=== PATIENT | female | born 1990 | race African-American/Black ===

== ENCOUNTER 2016-07-30 08:55 | Inpatient (IN) | payer OTHER ==
[~2016-07-30 08:55] MED LIST: CITRIC ACID/SODIUM CITRATE 30 ML UNIT-DOSE CUP PO ONE; ELECTROLYTE-148 SOLN 1,000 ML IV ONE
[2016-07-30] MEDS ORDERED: ELECTROLYTE-148 SOLN 1,000 ML IV SCH ×2 (09:00→09:55)
[2016-07-30 09:58] LABS: BASOPHIL 0.6 % (0-2.0); EOSINOPHIL 1.2 % (0-4.5); MCHC 33.5 g/dl (32.0-36.0); MEAN CELL VOLUME 92.3 fl (80-96); MEAN PLT VOLUME 8.3 fl (7.5-11.1); NEUTROPHILS 71.6 % (42.8-82.8); PLATELET COUNT 185 K/MM3 (134-434); WHITE BLOOD COUNT 7.3 K/mm3 (4.0-10.0)
[2016-07-30 10:07] VITALS: BMI 40.3
[2016-07-30 10:23] LABS: CALCIUM 8.2 mg/dL (8.5-10.1); COCKROFT - GAULT 281.877; CREATININE 0.5 mg/dL (0.55-1.02)
[2016-07-30 10:26] LABS: INR 0.92 (0.82-1.09); PROTHROMBIN TIME (PATIENT) 10.1 SEC (9.98-11.88)
[2016-07-30 10:29] LABS: ACTIVATED PTT 27.3 SECONDS (26.9-34.4)
[2016-07-30] MEDS ORDERED: ELECTROLYTE-148 SOLN 500 ML IV ONE (11:04)
--- NOTE | 2016-07-30 11:16 | HP ---
Past Medical History - Primary Care Physician PCP:: Zora Dong - Admission Chief Complaint: 26 yrs , previous c/section, 41 weeks gestation, not in labor, requests for repeat c/section History of Present Illness: pnc at 2, [facility] .Late registrant at 33 weeks . wt gain 55lbs work up : AB Neg , Rhogam taken on 06/26/16 . Hbsag neg, Rpr nr, Quantiferon neg, Hiv neg, Rubella immune , Quantiferon neg, Gbs neg . 07/27/16 sono SLIUP , 40.5 weeks, bpp8/8, REBEKA 13.1, EFW 8'5" , NST cat-1 pt was awaiting for labor onset, she does not want to wait any longer . History Source: Patient, Medical Record - Past Medical History ALL TERRAIN VEHICLE TECHNICIAN: No: Seizure Cardiovascular: No: HTN, Murmur Pulmonary: No: Asthma Gastrointestinal: Yes: Constipation Renal/: No: UTI ...: 4 ...Para: 3 (2 07/04/15 7'7" . 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 in [facility]) ...: 0 ...Spon : 0 ...Induced : 0 ...Multiple Gestation: 0 ...LMP: 08/23/15 (mistaken dates ) ...EDC by Sono: 07/23/16 (41 weeks ) Heme/Onc: Yes: Anemia (pt non compliant in taking meds) Infectious Disease: No: AIDS, HIV, STD's, Tuberculosis Psych: No: Addictions, Anxiety, Bipolar, Depression Endocrine: No: Diabetes Mellitus, Hyperthyroidism, Hypothyroidism - Past Surgical History Past Surgical History: Yes: Hx Myomectomy: No Hx Transabdominal Cerclage: No - Smoking History Smoking history: Never smoked Have you smoked in the past 12 months: No - Alcohol/Substance Use Hx Alcohol Use: No History of Substance Use: reports: None - Social History History of Recent Travel: No Home Medications - Allergies Allergies/Adverse Reactions: Allergies Allergy/AdvReac Type Severity Reaction Status Date / Time No Known Allergies Allergy Verified 07/30/16 09:27 - Home Medications Home Medications: Ambulatory Orders Pnv95/Ferrous Fumarate/FA [ Vitamin Tablet] 1 each PO DAILY 07/28/16 Physical Exam - Maternity Vital Signs: Vital Signs Temperature 97.8 F 07/30/16 09:30 Pulse Rate 88 07/30/16 09:30 Respiratory Rate 18 07/30/16 09:30 Blood Pressure 111/65 07/30/16 09:30 O2 Sat by Pulse Oximetry (%) Selected Entries 07/30/16 09:30 Weight 235 lb Constitutional: Yes: Well Nourished, No Distress, Obese Eyes: Yes: WNL HENT: Yes: WNL, Normocephalic Neck: Yes: WNL Cardiovascular: Yes: WNL, Regular Rate and Rhythm Lungs: Clear to auscultation Breast(s): Yes: WNL (Large pendulous breast) - Abdominal Exam/OB Fundal Height: 40 Number of Fetuses: Single Presentation: Vertex Contractions: No Monitor Mode: External Heart Rate (range): 130 Heart Rate Location: Midline Category: I Accelerations: Uniform Decelerations: None - Vaginal Exam/OB Vaginal Bleediing: No Speculum Exam: No Dilatation (cm): close Effacement (%): unefface Amniotic Membrane Status: Intact Presentation: Vertex/Position Station: -3 - Physical Exam Musculoskeletal: Yes: WNL Extremities: Yes: WNL. No: Calf Tenderness Edema: Yes Edema: LLE: 1+, RLE: 1+ Integumentary: Yes: Incision (previous pfannensteil scar) Deep Tendon Reflex Grade: Normal +2 ...Motor Strength: WNL Psychiatric: Yes: WNL, Alert, Oriented - Labs Lab Results: CBC, BMP 07/30/16 09:40 07/30/16 09:40 Hemorrhage Risk Assessment - Risk Factors Medium Risk Factors: Yes: Obesity (BMI >40), Hematocrit < 30% & other Risk Score: 2 Risk Level: High Risk Problem List - Problems (1) with 41 completed weeks gestation Code(s): Z3A.41 - 41 WEEKS GESTATION OF (2) Previous section complicating Code(s): O34.219 - MATERNAL CARE FOR UNSP TYPE SCAR FROM PREVIOUS DEL (3) Anemia Code(s): D64.9 - ANEMIA, UNSPECIFIED Qualifiers: Anemia type: iron deficiency Iron deficiency anemia type: inadequate dietary iron intake Qualified Code(s): D50.8 - Other iron deficiency anemias (4) Obesities, morbid Code(s): E66.01 - MORBID (SEVERE) OBESITY DUE TO EXCESS CALORIES Assessment/Plan 26 yrs , 41 weeks gestation, previous c/section, not in labor, gbs neg, obesity, anemia requests for repeat c/se
[2016-07-30] MEDS ORDERED: ONDANSETRON 4 MG/2 ML VIAL IVPB PRN (11:23)
[2016-07-30] MEDS ORDERED: morphine SULFATE/Preservative Free 0.5 MG/ML (1cc Syringe) EP ONE (11:23)
[2016-07-30] MEDS ORDERED: IBUPROFEN 800 MG/8 ML IJ IVPB PRN (11:24)
[2016-07-30] MEDS ORDERED: SENNOSIDES/DOCUSATE COMBO (SENNA PLUS) TABLET (UD) PO PRN (13:17)
[2016-07-30] MEDS ORDERED: METHYLERGONOVINE MALEATE 0.2 MG/1 ML AMP IM PRN (13:17)
[2016-07-30] MEDS ORDERED: D5W-LR W/ 20 UNITS OXYTOCIN 1,000 ML IV SCH (13:30)
--- NOTE | 2016-07-30 13:30 | OP ---
Operative Note - Note: Operative Date: 07/30/16 Pre-Operative Diagnosis: 41 weeks, previous c/s ,requests repeat c/s , obesity, anemia Operation: Repeat LFTC/section, Lysis of adhesions Findings: baby boy at 12.08 pm, , 9/9, wt 8'7", LOT position both tubes & ovaries normal adhesions between uteus Right lateral abdominal wall 2 cm thick band clamped cut , stump sutured omental adhesions at abdominal wall at superior edge of the incision Surgeon: Zora Dong Assembler Production Line: Kamran Chun Anesthesiologist/PUBLIC RELATIONS REPRESENTATIVE: Ricco Harrison Anesthesia: Spinal Specimens Removed: placenta. cord blood Estimated Blood Loss (mls): 600 Drains, Volume Out (mls): 300 (glenroy color ) Fluid Volume Replaced (mls): 1,200 (iv Ancef 2 gm prior to incision given ) Operative Report Dictated: Yes
--- NOTE | 2016-07-30 13:39 | PN ---
Delivery - Delivery Section: Repeat, Low Flap Transverse (Lysis of adhesions) Type of Anesthesia: Spinal EBL (cc): 600 (oakes out put 300 ml glenroy color ) Delivery, Single - Stages of Labor Date of Delivery: 07/30/16 Time of Delivery: 12: Date Placenta Delivered: 07/30/16 Time Placenta Delivered: : Placenta: Yes: Manual Removal, Uterine Exploration - Condition of Ultrasound Technician/Rehab Liaison Present: Yes Name: Hussein Lopez Gender: Male Position: Left, OT Total Hours ROM (Hrs/Mins): 2 min - 1 Minute Total Score: 9 5 Minutes Total Score: 9 - Feeding Plan Initial Plan: Elected not to breastfeed exclusively throughout hospitalization Remarks - Remarks Remarks: Indication 41 weeks, previous c/section, not in labor, requests repeat c/s, obesity, anemia Pnc at [address] [place] [address] Gbs neg
[2016-07-30] MEDS: CEFAZOLIN 1 GM/D5W 50 ML IVPB SCH (18:09)
[2016-07-31] MEDS ORDERED: CEFAZOLIN (PRE-DOCKED) 50 ML IVPB ONE (01:59)
[2016-07-31] MEDS: CEFAZOLIN 1 GM/D5W 50 ML IVPB SCH ×2 (02:00→09:16)
--- NOTE | 2016-07-31 07:15 | PN ---
Progress Note (short form) - Note Progress Note: pod 1 doing well, has low abdominal cramp CBC, BMP 07/30/16 09:40 07/30/16 09:40 Last Vital Signs Temp Pulse Resp BP Pulse Ox 98.7 F 89 18 134/70 100 07/31/16 05:00 07/31/16 05:00 07/31/16 06:00 07/31/16 05:00 07/30/16 14:45 abdomen soft, mild low abdominal tenderness. no cva incision dry no excess vaginal bleeding plan ambulate. advance diet pain management
[2016-07-31 07:53] LABS: BASOPHIL 0.3 % (0-2.0); EOSINOPHIL 0.3 % (0-4.5); MCH 30.6 pg (25.7-33.7); MCHC 32.9 g/dl (32.0-36.0); MEAN CELL VOLUME 93.1 fl (80-96); MEAN PLT VOLUME 8.8 fl (7.5-11.1); NEUTROPHILS 85.5 % (42.8-82.8); PLATELET COUNT 196 K/MM3 (134-434); RDW 12.8 % (11.6-15.6); WHITE BLOOD COUNT 12.6 K/mm3 (4.0-10.0)
[2016-07-31] MEDS ORDERED: oxyCODONE HCL 5 MG TABLET PO PRN ×2 (08:00)
--- NOTE | 2016-07-31 08:56 | PN ---
Progress Note (short form) - Note Progress Note: Anesthesia/Pain Pt seen and examined S:alert and awake comfortable O: Vital Signs Temperature 98.7 F 07/31/16 05:00 Pulse Rate 89 07/31/16 05:00 Respiratory Rate 20 07/31/16 08:00 Blood Pressure 134/70 07/31/16 05:00 O2 Sat by Pulse Oximetry (%) 100 07/30/16 14:45 CBC, BMP 07/31/16 06:45 07/30/16 09:40 Current Active Problems A/P:Anemia (Acute) Obesities, morbid (Acute) with 41 completed weeks gestation (Acute) Previous section complicating (Acute) s/p c section Doing well post op Continue current care Adam Bryant MD
[2016-07-31] MEDS: ENOXAPARIN NA (PORCINE) 40 MG/0.4 ML DISP.SYRIN SQ SCH (09:16)
[2016-07-31] MEDS: SIMETHICONE 80 MG TAB.CHEW (FP) PO PRN ×2 (09:18→21:43)
[2016-07-31] MEDS: IBUPROFEN 600 MG TABLET (FP) PO PRN (09:19)
[2016-07-31] MEDS: ACETAMINOPHEN 325 MG TABLET (FP) PO PRN (09:19)
[2016-07-31] MEDS: PRENATAL VITAMINS W/ FOLIC ACID TABLET (FP) PO SCH (09:21)
--- NOTE | 2016-07-31 10:54 | PN ---
Post Progress Note - Subjective Subjective: no c/o pain . voided twice after oakes is taken out Post Day: 1 Type of Delivery: Repeat C/S Vital Signs: Vital Signs Temperature 98.7 F 07/31/16 05:00 Pulse Rate 89 07/31/16 05:00 Respiratory Rate 20 07/31/16 08:00 Blood Pressure 134/70 07/31/16 05:00 O2 Sat by Pulse Oximetry (%) 100 07/30/16 14:45 Breast Exam: Yes: Soft. No: Engorged Uterus: Yes: Fundus Firm, Fundus below umbilicus, Non-tender Incision: Yes: Dressing dry and intact. No: Oozing Abdomen/GI: Yes: Abdomen soft, Tolerating PO (clear liquids ). No: Abdominal Distention, Tender, Passing flatus Lochia: Yes: Rubra Lochia, amount: Moderate Extremities: Yes: Calves non-tender Perineum: Yes: Intact Activity: Ambulating - Labs Labs: CBC WBC 12.6 K/mm3 (4.0-10.0) H D 07/31/16 06:45 RBC 3.22 M/mm3 (3.60-5.2) L 07/31/16 06:45 Hgb 9.9 GM/dL (10.7-15.3) L D 07/31/16 06:45 Hct 30.0 % (32.4-45.2) L 07/31/16 06:45 MCV 93.1 fl (80-96) 07/31/16 06:45 MCHC 32.9 g/dl (32.0-36.0) 07/31/16 06:45 RDW 12.8 % (11.6-15.6) 07/31/16 06:45 Plt Count 196 K/MM3 (134-434) 07/31/16 06:45 MPV 8.8 fl (7.5-11.1) 07/31/16 06:45 Neutrophils % 85.5 % (42.8-82.8) H 07/31/16 06:45 Lymphocytes % 8.4 % (8-40) D 07/31/16 06:45 Monocytes % 5.5 % (3.8-10.2) 07/31/16 06:45 Eosinophils % 0.3 % (0-4.5) 07/31/16 06:45 Basophils % 0.3 % (0-2.0) 07/31/16 06:45 Problem List - Problems (1) with 41 completed weeks gestation Code(s): Z3A.41 - 41 WEEKS GESTATION OF (2) Previous section complicating Code(s): O34.219 - MATERNAL CARE FOR UNSP TYPE SCAR FROM PREVIOUS DEL (3) Anemia Code(s): D64.9 - ANEMIA, UNSPECIFIED Qualifiers: Anemia type: iron deficiency Iron deficiency anemia type: inadequate dietary iron intake Qualified Code(s): D50.8 - Other iron deficiency anemias (4) Obesities, morbid Code(s): E66.01 - MORBID (SEVERE) OBESITY DUE TO EXCESS CALORIES (5) delivery delivered Code(s): O82 - ENCOUNTER FOR DELIVERY WITHOUT INDICATION Assessment/Plan post c/section day #1 stable anemia, hemodynamically stable plan ct post op care encourage deep breathing & ambulation & po fluids
--- NOTE | 2016-07-31 11:33 | OP ---
DATE OF OPERATION: 07/30/2016 PREOPERATIVE DIAGNOSIS: A 41-week previous section, not in labor, request for repeat section, obesity, and anemia. OPERATION DONE: Repeat low-flap transverse section and lysis of adhesions. SURGEON: Zora Dong MD CARD SORTER SURGEON: SHON Hughes ANESTHESIOLOGIST: Ricco Harriosn MD ANESTHESIA: Spinal. POST ANESTHESIA CARE UNIT NURSE: Hussein Lopez MD FINDINGS: This is a 26-year-old 4, para 3-0-0-3, 41 weeks and cervix is closed posterior. The patient is for repeat section. PROCEDURE: The patient was taken to the operating room table and spinal anesthesia was given. The abdomen was prepped. Rossi catheter was placed. She was placed in supine position. The abdomen was painted and draped in the usual manner. A Pfannenstiel incision was made through previous scar of skin and subcutaneous tissue. The anterior rectus sheath was incised transversely. Bleeding points were clamped and cauterized. Rectus muscle was from the rectus sheath. The parietal peritoneum was opened vertically. Then the lower flap by the peritoneum was incised transversely. The transverse segment was very thin and it was extended laterally. Amnionic fluid was clear and a large amount. Delivery of the baby was encountered with difficulty so the vacuum cup was applied and the baby was brought down more in the incision and then with fundal pressure the baby was gently delivered at 12:08 p.m. Apgars were 9 and 9. The baby's weight was 8 pounds 12 ounces, and height is 19 inches. The cord was clamped and cut. Cord blood was collected. Immediate suction of the nasal and oral cavity was done. The placenta was removed completely with the membranes. The uterus was brought out of the incision and the closure of the uterine cavity was cleaned and then closure of the abdomen was done. First it was closed Biosyn 0 suture, continuous locking sutures were taken. The second layer was taken with the Biosyn 0 suture and interrupted locking sutures were taken. Vertical mattress sutures were taken. The bladder peritoneum was closed with interrupted sutures. Both tubes and ovaries were normal. The uterus was placed back into the peritoneal cavity. Irrigation was done. Sponge, instrument, and needle count was correct, and the closure of the abdomen was done. There were adhesions between the omentum and the superior edge of the abdominal wall, which was clamped, cut, and ligated. There some thick band between the anterior uterine surface and the right lateral abdominal wall, which was clamped, cut, and then transfixed with a Biosyn 0 sutures separately. Hemostasis was verified. Then the closure of the abdomen was done. The parietal peritoneum was closed with 0 Vicryl suture. Continuous sutures were taken. Muscles were approximated together with Vicryl 0 interrupted sutures. Hemostasis was verified. Underneath the rectus sheath flaps and the rectus sheath was closed with Vicryl 0 continuous sutures. The skin was mobilized from underneath the scar and then the subcutaneous sutures had hemostasis checked. Irrigation was done. Interrupted sutures were taken in subcutaneous tissue and then the skin was approximated with claudia. A pressure dressing was given. Blood clots were removed from the vagina. Estimated blood loss was 600 mL. Urine output intraoperatively was 300 mL and it was glenroy colored. The patient tolerated the procedure well and she was transferred to the recovery room in stable condition. She received 2 grams of intravenous Ancef prior to the incision. Fatimah [id number]
[2016-07-31] MEDS ORDERED: BISACODYL 10 MG SUPP.RECT RC PRN (13:17)
[2016-07-31] MEDS: FERROUS SO4 325 MG TABLET (FP) PO SCH (21:43)
[2016-08-01] MEDS: ACETAMINOPHEN 325 MG TABLET (FP) PO PRN (00:40)
[2016-08-01] MEDS: IBUPROFEN 600 MG TABLET (FP) PO PRN (00:41)
--- NOTE | 2016-08-01 07:57 | PN ---
Post Progress Note - Subjective Subjective: c/o pain. scale 5/10 bm not done voiding without difficulty Post Day: 2 Type of Delivery: Repeat C/S Vital Signs: Vital Signs Temperature 98.2 F 07/31/16 22:00 Pulse Rate 68 07/31/16 22:00 Respiratory Rate 20 07/31/16 22:00 Blood Pressure 112/64 07/31/16 22:00 O2 Sat by Pulse Oximetry (%) 100 07/30/16 14:45 Breast Exam: Yes: Soft, Other (BF ). No: Engorged Uterus: Yes: Fundus Firm, Fundus below umbilicus Incision: Yes: Suzan intact. No: Redness, Oozing Abdomen/GI: Yes: Abdomen soft (bs active ), Abdominal Distention (obese abdomen ), Tender, Passing flatus, Tolerating PO (diet ) Lochia: Yes: Rubra Lochia, amount: Moderate Extremities: Yes: Calves non-tender Perineum: Yes: Intact Activity: Ambulating - Labs Labs: CBC WBC 12.6 K/mm3 (4.0-10.0) H D 07/31/16 06:45 RBC 3.22 M/mm3 (3.60-5.2) L 07/31/16 06:45 Hgb 9.9 GM/dL (10.7-15.3) L D 07/31/16 06:45 Hct 30.0 % (32.4-45.2) L 07/31/16 06:45 MCV 93.1 fl (80-96) 07/31/16 06:45 MCHC 32.9 g/dl (32.0-36.0) 07/31/16 06:45 RDW 12.8 % (11.6-15.6) 07/31/16 06:45 Plt Count 196 K/MM3 (134-434) 07/31/16 06:45 MPV 8.8 fl (7.5-11.1) 07/31/16 06:45 Neutrophils % 85.5 % (42.8-82.8) H 07/31/16 06:45 Lymphocytes % 8.4 % (8-40) D 07/31/16 06:45 Monocytes % 5.5 % (3.8-10.2) 07/31/16 06:45 Eosinophils % 0.3 % (0-4.5) 07/31/16 06:45 Basophils % 0.3 % (0-2.0) 07/31/16 06:45 Problem List - Problems (1) with 41 completed weeks gestation Code(s): Z3A.41 - 41 WEEKS GESTATION OF (2) Previous section complicating Code(s): O34.219 - MATERNAL CARE FOR UNSP TYPE SCAR FROM PREVIOUS DEL (3) Anemia Code(s): D64.9 - ANEMIA, UNSPECIFIED Qualifiers: Anemia type: iron deficiency Iron deficiency anemia type: inadequate dietary iron intake Qualified Code(s): D50.8 - Other iron deficiency anemias (4) Obesities, morbid Code(s): E66.01 - MORBID (SEVERE) OBESITY DUE TO EXCESS CALORIES (5) delivery delivered Code(s): O82 - ENCOUNTER FOR DELIVERY WITHOUT INDICATION Assessment/Plan post c/section anemia stable counselled pt requesting to be discharged today due to emergent condition , no one reliable to look after her other kids . I told her it is better to wait until tomorrow, she had declined pr suppository yesterday. she will be discharged AMA .
[2016-08-01] MEDS: PRENATAL VITAMINS W/ FOLIC ACID TABLET (FP) PO SCH (10:00)
[2016-08-01] MEDS: ENOXAPARIN NA (PORCINE) 40 MG/0.4 ML DISP.SYRIN SQ SCH (10:00)
[2016-08-01] MEDS: FERROUS SO4 325 MG TABLET (FP) PO SCH (10:00)
[2016-08-01 12:37] VITALS: BP 137/76; PULSE 82; TEMP 98
--- NOTE | 2016-08-01 21:24 | DS ---
Physical Exam-EMAIL CAMPAIGN SPECIALIST Vital Signs: Vital Signs Temperature 98.0 F 08/01/16 10:00 Pulse Rate 82 08/01/16 10:00 Respiratory Rate 20 08/01/16 10:00 Blood Pressure 137/76 08/01/16 10:00 O2 Sat by Pulse Oximetry (%) 100 07/30/16 14:45 Constitutional: Yes: Well Nourished, No Distress, Pallor Eyes: Yes: WNL HENT: Yes: WNL, Normocephalic Neck: Yes: WNL Cardiovascular: Yes: WNL Respiratory: Yes: WNL Gastrointestinal: Yes: WNL, Normal Bowel Sounds, Abdomen, Obese. No: Distention , Tenderness ....Post : Yes: Uterus firm, Uterus non-tender, Moderate lochia rubra Breast(s): Yes: WNL (not BF) Extremities: No: Calf Tenderness Edema: Yes Edema: LLE: 1+, RLE: 1+ Integumentary: Yes: WNL Wound/Incision: Yes: Clean/Dry, Well Approximated, [place] Intact, Open to air, Excoriated. No: Reddened, Bleeding Neurological: Yes: WNL, Alert, Oriented ...Motor Strength: WNL Psychiatric: Yes: WNL Labs: CBC, BMP 07/31/16 06:45 07/30/16 09:40 Delivery - Delivery Section: Repeat, Low Flap Transverse (Lysis of adhesions) Type of Anesthesia: Spinal Episiotomy/Laceration: None EBL (cc): 600 Delivery, Single - Stages of Labor Date of Delivery: 07/30/16 Time of Delivery: 12:08 Time Placenta Delivered: 12:09 Placenta: Yes: Manual Removal, Uterine Exploration - Condition of Infant Wind Commissioning Technician/Liquefied Petroleum Gasfitter Present: Yes Name: Hussein Lopez Gender: Male Weight: 8 lb 7 oz Position: Left, OT Total Hours ROM (Hrs/Mins): 2 min - 1 Minute Total Score: 9 5 Minutes Total Score: 9 - [place] Feeding Plan Initial Plan: Elected not to breastfeed exclusively throughout hospitalization Remarks - Remarks Remarks: Indication 41 weeks, previous c/section, not in labor, requests repeat c/s, obesity, anemia Pnc at [address] [place] [address] Gbs neg . post op uneventful . anemia counselled . 'pt signed out AMA 08/01/16 2nd day post op . visiting nurse was arranged by social work supervisor pt will RTC on Wednesday08/04/16 for claudia removal Discharge Summary Reason For Visit: REPEAT C/SECTION Condition: Stable - Instructions Diet, Activity, Other Instructions: Post Instructions DIET: Continue good diet high in protein, calcium, and iron rich foods. Drink at least eight (8) glasses of water daily in addition to other fluids. ___ Regular diet ___ ___ MEDICATIONS: Continue vitamins and iron as previously directed. Motrin and Tylenol may be taken for minor discomfort. ACTIVITY: Mild to moderate exercise may be started in two (2) weeks. Take frequent rest periods. Resume normal activity after six (6) week check up. WOUND CARE OF OPERATIVE SITE: Continue use of perineal bottle until vaginal discharge stops. Keep area clean. Shower daily. Keep abdominal wound dry. Report any drainage or redness to physician. Tub baths, tampons and douches are not permitted for [address] Breast feeding & or Bottle feeding BREAST CARE: (For those that are not ): If engorgement occurs: Wear tight fitting bra. Take Tylenol or Motrin for pain. Apply cold packs (ice in bags to each breast ) FAMILY PLANNING: There are many control alternatives to pursue and they should be discussed at your first office visit. You may resume sexual activity after your six (6) week check up. (Remember, breast feeding is not a contraceptive) NEXT PHYSICIAN APPOINTMENT: Be certain to call for a one (1) week appointment, unless otherwise directed.RTC Wednesday for Claudia removal Call Clinic or got to Emergency Dept if you have any of the following: Heavy vaginal bleeding Painful urination Leg pain Unusual odor noted to vaginal bleeding High fever Red streaking noted on breast Referrals: Zora Dong MD [Staff Physician] - Disposition: AGAINST MEDICAL ADVICE - Home Medications Comprehensive Discharge Medication List: Ambulatory Orders Pnv95/Ferrous Fumarate/FA [ Vitamin Tablet] 1 each PO DAILY 07/28/16 Acetaminophen [Tylenol .Regular Strength -] 650 mg PO Q4H PRN #0 tablet Ferrous Sulfate [Feosol] 325 mg PO BID #60 tab 08/01/16 Ibuprofen [Motrin -] 600 mg PO Q4H PRN #30 tablet 08/01/16 Vitamins (Sjr) - 1 tab PO DAILY #30 tablet 08/01/16
--- NOTE | 2016-08-04 13:15 | PATH ---
Surgical Pathology Report Patient Name: KANDIS SILVEIRA [facility]. Rec. #: [id number] /Age/Gender: 1990 (Age: 26) / F Account: [id number] Location: [facility] OBS/FBI SPECIAL AGENT Taken: 07/30/2016 Received: 07/31/2016 Reported: 08/04/2016 Physicians: Zora Dong M.D. Specimen(s) Received PLACENTA Clinical History , post term 06/2005, 05/2007, 03/2014 Late registrant, history of macrosomia, obesity Final Diagnosis PLACENTA, DELIVERY: THIRD TRIMESTER PLACENTA WITH SUBCHORIONIC AND INTERVILLOUS FIBRIN DEPOSITION, 3 VESSEL UMBILICAL CORD, AND UNREMARKABLE PLACENTAL MEMBRANES. Electronically Signed Christ Rai M.D. Gross Description The specimen is received fresh labeled placenta and is a 516 gram, 16.5 x 13.0 x 3.0 cm. placenta with attached membranes and umbilical cord. The attached membranes are hoyos, translucent with focal opacities and insert marginally. The umbilical cord measures 12 cm. in length and averages 1 cm. in diameter. The cord inserts eccentrically, 2 cm. to the nearest margin. No true knots or strictures are identified. Cut surface of the umbilical cord reveals 3 vessels. The surface is steiner blue with moderate fibrin deposition and appropriate however vessels. The maternal surface is red-brown and intact. Sectioning reveals red-brown, spongy parenchyma. No lesions are identified. Supervisor Intelligence Analyst sections are submitted in three cassettes as follows: 1- membrane rolls and umbilical cord; 2-3- full thickness sections of placenta. /08/03/2016 [facility]08/03/2016
== END 2016-08-01 13:36 | disposition left against medical advice (07) | DRG 540 ==
LOC: JLDR 08:55 → J3W 14:45
PROVIDERS: ADMIT Obstetrics & Gynecology; ATTEND Obstetrics & Gynecology
PROC: 10D00Z1 Extraction of Products of Conception, Low, Open Approach (ICD-10-PCS; principal; 2016-07-30)
PROC: 3E0334Z Introduction of Serum, Toxoid and Vaccine into Peripheral Vein, Percutaneous Approach (ICD-10-PCS; 2016-07-31)
DX: O34.211 Maternal care for low transverse scar from previous cesarean delivery (principal); N85.8 Other specified noninflammatory disorders of uterus; O99.214 Obesity complicating childbirth; E66.01 Morbid (severe) obesity due to excess calories; Z68.41 Body mass index [BMI] 40.0-44.9, adult; O99.02 Anemia complicating childbirth; Z3A.41 41 weeks gestation of pregnancy; O26.893 Other specified pregnancy related conditions, third trimester; Z67.91 Unspecified blood type, Rh negative; Z37.0 Single live birth
CPT/HCPCS: 36415; 80048; 85025; 85461; 85610; 85730; 86593; 86850; 86870; 86900; 86901; 86902; 86999; 88307-TC; 94010

== ENCOUNTER 2021-07-22 15:57 | Emergency (ER) | payer OTHER ==
[2021-07-22 16:10] VITALS: BP 104/70; PULSE 98; TEMP 98.3; BMI 36.8
[2021-07-22 19:56] LABS: HCG,QUALITATIVE URINE Negative
[2021-07-22 19:57] LABS: EPI CELLS 9 /uL (0-25.1); HYALINE CASTS 7 /uL (0-3.1); PH,URINE 5.5 (5.0-8.0); URINE APPEARANCE CLEAR; URINE BACTERIA 331 /uL (0-1359); URINE BILIRUBIN NEGATIVE (NEGATIVE); URINE COLOR YELLOW; URINE GLUCOSE (UA) NEGATIVE (NEGATIVE); URINE KETONE TRACE (NEGATIVE); URINE LEUK ESTERASE 1+ (NEGATIVE); URINE NITRITE NEGATIVE (NEGATIVE); URINE PROTEIN TRACE (NEGATIVE); URINE RBC 15 /uL (0-23.9); URINE WBC 176 /uL (0-25.8)
[2021-07-22] MEDS ORDERED: cefTRIAXone SODIUM 1 GM VIAL ONE (20:07)
== END 2021-07-22 20:29 | disposition home or self-care (01) ==
LOC: JER 15:57 → JERFT 15:57
DX: N89.8 Other specified noninflammatory disorders of vagina (principal)
CPT/HCPCS: 36415; 81003; 84703; 87070; 87077; 87086; 87205; 87491; 87591; 99284-25